=== PATIENT | female | born 1980 | race Caucasian/White ===

== ENCOUNTER 2017-09-22 10:41 | Emergency (ER) | payer BC ==
[~2017-09-22] VITALS: Ht 170.2 cm; Wt 122.0 kg
[~2017-09-22 10:41] MED LIST: ADVAIR 250/501 DISK IH; ENDOCET 5-3251 EACH PO; MOTRIN600 MG PO; PERCOCET 5/31 TABLET PO; PRENATAL TABLE1 EAC3 PO; PROAIR HFA8.5 GM IH; ZOFRAN4 MG PO
[2017-09-22 11:27] LABS: APPEARANCE CLEAR ((CLEAR)); BILIRUBIN NEGATIVE; BLOOD MODERATE; COLOR YELLOW ((YELLOW)); GLUCOSE (STRIP) NEGATIVE; KETONES NEGATIVE; LEUKOCYTES NEGATIVE; NITRITE NEGATIVE; PROTEIN (STRIP) NEGATIVE; SPECIFIC GRAVITY 1.015 (1.000-1.030); UROBILINOGEN 0.2 MG/DL (0.2-1.0)
[2017-09-22 11:31] LABS: BACTERIA RARE /HPF; EPITHELIAL CELLS 1+ /HPF; MUCUS TRACE /LPF; UCUL ADDED? NO; WHITE BLOOD CELLS 0-5 /HPF (0-5)
[2017-09-22 12:14] LABS: BASOPHIL (%) 0.7 % (0-1); BASOPHIL COUNT 0.1 K/uL (0-0.1); EOSINOPHIL (%) 2.5 % (0-5); EOSINOPHIL COUNT 0.2 K/uL (0-0.3); HEMATOCRIT 41.7 % (36.0-46.0); HEMOGLOBIN 13.7 G/DL (11.9-15.5); IMMATURE GRANULOCYTE (%) 0.2 % (0.0-0.7); LYMPHOCYTE (%) 33.4 % (15-42); MCHC 32.9 G/DL (30.0-36.0); MCV 85.3 FL (83-99); MONOCYTE (%) 5.6 % (3-12); MONOCYTE COUNT 0.5 K/uL (0-0.8); NEUTROPHIL (%) 57.6 % (45-76); NEUTROPHIL COUNT 5.2 K/uL (1.8-6.4); PLATELET COUNT 431 K/uL (156-360); RBC DIS.WIDTH-CV 13.3 % (11.8-14.6); RBC DIS.WIDTH-SD 41.8 % (39-53); RED BLOOD COUNT 4.89 M/uL (3.80-5.20)
[2017-09-22 12:22] LABS: ALBUMIN 4.6 g/dL (3.2-4.8)
[2017-09-22 12:23] LABS: CHLORIDE 106 mEq/L (99-109); POTASSIUM 3.8 mEq/L (3.7-5.4); SODIUM 140 mEq/L (136-147)
[2017-09-22 12:25] LABS: GLUCOSE 111 mg/dL (70-99); TOTAL PROTEIN 8.2 g/dL (6.4-8.3)
[2017-09-22 12:27] LABS: TOTAL BILIRUBIN 0.2 mg/dL (0.0-1.0)
[2017-09-22 12:28] LABS: ALKALINE PHOSPHATASE 71 IU/L (3-129)
[2017-09-22 12:29] LABS: CREATININE 0.9 mg/dL (0.6-1.3); GFR ESTIMATE (CALCULATED) > 59 mL/min/
[2017-09-22 12:30] LABS: AST (GOT) 16 IU/L (2-34); UREA NITROGEN (BUN) 13 mg/dL (9-23)
[2017-09-22 12:32] LABS: ALT (GPT) 24 IU/L (3-49); LIPASE 23 U/L (1.0-51.0)
[2017-09-22 12:39] LABS: QUANTITATIVE HCG < 4.0 MIU/ML
[2017-09-22] MEDS ORDERED: IBU600 MG PO (14:44)
[2017-09-22] MEDS ORDERED: MACROBID100 MG PO (14:44)
[2017-09-22] MEDS ORDERED: PYRIDIUM100 MG PO (14:44)
[2017-09-22] MEDS ORDERED: PERCOCET 5/31 TABLET PO (14:44)
[2017-09-22] MEDS ORDERED: ZOFRAN4 MG PO (15:20)
[2017-09-22 15:21] VITALS: BP 107/61
== END 2017-09-22 15:25 | disposition home or self-care (01) ==
LOC: EME 10:41
PROVIDERS: Emergency Medicine
DX: N39.0 Urinary tract infection, site not specified (principal); M54.5 Low back pain; J45.909 Unspecified asthma, uncomplicated; Z87.440 Personal history of urinary (tract) infections; Z88.0 Allergy status to penicillin
CPT/HCPCS: 74176; 80053; 81003; 83690; 84702; 85025; 87086; J1200; J1885; J2405; J7030